=== PATIENT | female | born 1980 | race Caucasian/White ===

== ENCOUNTER 2019-12-17 12:57 | Outpatient (CLI) | payer OTHER, SELFPAY ==
--- NOTE | ~2019-12-17 | MM_ITS ---
EXAMINATION: MM screening ewa BI w annabel HISTORY: Screening mammogram TECHNIQUE: Craniocaudal and mediolateral oblique 3-D tomosynthesis images were obtained and synthetic 2-D images were generated. CAD analysis was submitted and interpreted. COMPARISON: No prior mammogram is available for comparison at this institution. BREAST PARENCHYMAL COMPOSITION: The breasts are heterogeneously dense, which may obscure small masses . FINDINGS: There is no evidence of suspicious mass, calcification, or architectural distortion to sugg est malignancy in either breast. There has been no suspicious interval change. IMPRESSION: 1. No mammographic evidence of malignancy. 2. Recommend routine screening mammography in one year. BI-RADS Category 1: Negative Reviewed, dictated and finalized at location A.
== END 2019-12-17 12:58 | disposition home or self-care (01) ==
PROVIDERS: PCP Obstetrics & Gynecology; Visit Provider Obstetrics & Gynecology
DX: Z12.31 Encounter for screening mammogram for malignant neoplasm of breast (principal)
CPT/HCPCS: 77063; 77067

== ENCOUNTER 2019-12-30 01:17 | Outpatient (CLI) | payer OTHER, SELFPAY ==
[2019-12-30 20:51] LABS: SARS-CoV-2 RNA PCR Negative
== END 2019-12-30 01:18 | disposition home or self-care (01) ==
LOC: ANHCOVIDDT 01:18
PROVIDERS: Visit Provider Surgery Plastic and Reconstructive Surgery
DX: Z01.812 Encounter for preprocedural laboratory examination (principal); Z20.828 Contact with and (suspected) exposure to other viral communicable diseases
CPT/HCPCS: 87635; C9803; U0003

== ENCOUNTER 2020-01-01 09:14 | Day surgery (SDC) | payer OTHER, SELFPAY ==
[2019-12-22 14:16] VITALS: BMI 20.5
[2020-01-01] VITALS (8 sets, daily range): BP systolic 115–142; BP diastolic 77–99; PULSE 53–83; RESP 13–20; TEMP 36.2–37.2; O2SAT 100; BMI 18.1
--- NOTE | 2020-01-01 09:27 | WPDANESEPPF ---
Anes - Initial Pre Proc Eval Procedure: Operation Date: 01/01/20 11:00 Proposed Procedures p Bilateral Augmentation Mammoplasty - Alvino Key MD Date/Time: 01/01/20 09:27 Surgeon: Alvino Key MD Pre Op Diagnosis: Micromastia Patient Data Age: 39 Gender: F Height: 5 ft 4 in Weight: 54.3 kg Allergies Allergy/AdvReac Type Severity Reaction Status Date / Time piroxicam [From Feldene] Allergy Unknown Verified 12/22/19 13:42 Home Medications Medication Instructions Recorded Confirmed Type dextroamphetamine-amphetamine ER 20 mg PO DAILY 11/10/19 01/01/20 History 20 mg 24hr capsule,extend release sumatriptan succinate 100 mg tablet 100 mg PO ONCE PRN 11/10/19 01/01/20 History docusate sodium 100 mg capsule 100 mg PO DAILY #14 cap 12/18/19 01/01/20 Rx ondansetron HCl 4 mg tablet 4 mg PO Q8H #28 tablet 12/18/19 01/01/20 Rx carisoprodol 350 mg tablet 350 mg PO TID PRN #21 tablet 12/22/19 01/01/20 Rx oxycodone-acetaminophen 5 mg-325 1 tablet PO Q6H PRN #15 tablet 12/22/19 01/01/20 Rx mg tablet Patient hx anesthesia problems: none Family hx anesthesia problems: none PMFSH Past Medical History Medical History ADD (attention deficit disorder) Surgical History Surgical History History of section x 2 Social History Social History Smoking status: Never smoker Alcohol intake: never Substance use: never Substance use type: does not use Living arrangements: with family Gender identity (if verbalized by the patient): Female Spiritual care concerns: No Anes - Eval Final PreProcedure Day of Procedure 01/01/20 09:27 Patient weight: normal Heart: regular rate and rhythm Lungs: clear to auscultation Airway: Mallampati scale class II Neurological: alert and oriented Last oral intake: >/= 8 hours ASA classification: II Emergent: no Anesthetic plan: proceed Anesthesia type and monitoring: general LMA and standard monitoring Informed Consent: The patient's anesthetic plan and its attendant risks and benefits were discussed with the patient/family/POA. Questions were solicited and answers provided to the satisfaction of the patient/family/POA.
[2020-01-01] MEDS: LACTATED RINGERS 1,000 ML 30 ML IV CONT ×3 (10:02→12:25)
[2020-01-01] MEDS: SCOPOLAMINE 1.5 MG PATCH TRANSDERM (10:04)
--- NOTE | 2020-01-01 10:13 | PM.PROC ---
Procedure Note - Detailed Date of procedure: 01/01/20 Pre-op diagnosis: Micromastia Post-op diagnosis: same Procedure performed: Bilateral Augmentation Mammaplasty Description of procedure: She is here today for bilateral breast augmentation. Previously and again today the risks, benefits, alternatives were discussed in extensive detail. I wanted her to be very realistic about the risks involved as well as expectations. We discussed aftercare and what to monitor for. Made sure answered all of her questions to her satisfaction today and consent was obtained. Marked in the preoperative holding area with their verification. The patient was taken to the operating room placed supine on the operating table. Anesthesia was provided by anesthesiology. A surgical time-out was taken. We cleansed the skin and 1% lidocaine and 0.25% Marcaine with epinephrine was used anesthetize as a field block. She was prepped and draped in a standard sterile fashion. Tegaderm nipple Buck were placed. A 15 blade used to make an incision along the inframammary fold. Dissection was continued at 45 degree angle until the chest wall as identified. I incised the pectoralis major along its inferior border and completely released the inferior border leaving the medial border intact. I created a subpectoral pocket in the appropriate dimensions based on our preoperative planning for the implant. I then copiously irrigated with saline solution and verified a strict hemostasis. Next the use a triple antibiotic and Betadine containing solution to irrigate the pocket. I washed my gloves with the triple antibiotic and Betadine solution. We washed the implant immediately upon opening it with this solution and only opened it when we needed it. I used implant funnel and no-touch technique. The implant was introduced into the pocket using the funnel. Having verified positioning of the implant this was closed using 2-0 Vicryl followed by 3-0 Monocryl in a running subcuticular 4-0 Monocryl followed by tissue glue. Fluffs, Joshua wrap, and surgical bra were placed. Patient was awoke and taken to PACU without difficulty. All instrument sponge counts were correct at the end of the case. Anesthesia: GLMA Surgeon: Alvino eKy MD Estimated blood loss (mL): 5 Drains: No Packing: No Pathology: none sent Complications: No immediate complications Condition: stable Disposition: PACU Findings: Dual Plane 1 Andrei Lucianoira SoftTouch 485cc Right: [id number] SN [id number] Left: [place] [id number] SN [id number]
--- NOTE | 2020-01-01 10:32 | WPDHPUPDATE1 ---
History and Physical Update Update Date/Time: 01/01/20 10:32 History and Physical has been reviewed, including an updated exam of the patient. There are NO changes in the patient's condition. Risks, benefits, and alternatives have been discussed and questions answered. Patient agrees to proceed with procedure.
[2020-01-01] MEDS: ceFAZolin SODIUM 2 GM/20 ML SW SYRINGE IV PUSH (10:41)
[2020-01-01] MEDS: LIDO 1%/EPINEPHRINE 1:100,000 20 ML VIAL 40 ML INFILTRATE (10:46)
[2020-01-01] MEDS: fentaNYL CITRATE INJ (*CRX) 100 MCG/2 ML VIAL 25 MCG IV PUSH ×4 (12:01→12:35)
[2020-01-01] MEDS: ONDANSETRON INJ 4 MG/2 ML VIAL IV PUSH (12:06)
[2020-01-01] MEDS: oxyCODONE HCL (*CRX) 5 MG TAB IR PO (12:55)
--- NOTE | 2020-01-01 13:19 | WPDANESPN ---
Anes - Prog Note Post-Op Date/Time: 01/01/20 13:19 Vital Signs: Last Vital Signs Temp 36.6 C 01/01/20 11:50 Pulse 71 01/01/20 13:05 Resp 13 01/01/20 13:05 BP 128/95 H 01/01/20 13:05 Pulse Ox 100 01/01/20 13:05 Pain Score (VAS): 3 I/O: Intake & Output 12/31/19 01/01/20 01/01/20 23:59 07:59 15:59 Intake Total 400 Balance 400 Post-procedural complaints: none Patient Feedback: Patient satisfied with anesthetic care.
--- NOTE | 2020-01-01 13:21 | WPDANESPN ---
Anes - Prog Note Post-Op Date/Time: 01/01/20 13:21 Cardiovascular status: normal Respiratory status: normal Airway patency: baseline Mental status: baseline Post-Op hydration status: normal Vital Signs: Last Vital Signs Temp 36.6 C 01/01/20 11:50 Pulse 71 01/01/20 13:05 Resp 13 01/01/20 13:05 BP 128/95 H 01/01/20 13:05 Pulse Ox 100 01/01/20 13:05 Pain Score (VAS): 3 I/O: Intake & Output 12/31/19 01/01/20 01/01/20 23:59 07:59 15:59 Intake Total 400 Balance 400 Post-procedural complaints: none Patient Feedback: Patient satisfied with anesthetic care.
== END 2020-01-01 13:35 | disposition home or self-care (01) ==
PROVIDERS: Visit Provider Surgery Plastic and Reconstructive Surgery
PROC: (CPT 19325; principal; 2020-01-01 11:00)
DX: N64.82 Hypoplasia of breast (principal)
CPT/HCPCS: 19325